=== PATIENT | male | born 1975 | race African-American/Black ===

== ENCOUNTER 2025-03-26 03:15 | Observation (INO) | payer OTHER ==
[~2025-03-26] VITALS: Ht 162.6 cm; Wt 66.6 kg
[2025-03-26 03:41] LABS: BASOPHILS ABSOLUTE AUTO 0.02 K/mm3 (0.00-0.23); BASOPHILS PERCENT AUTO 0 % (0-2); EOSINOPHILS ABSOLUTE AUTO 0.18 K/mm3 (0.00-0.68); EOSINOPHILS PERCENT AUTO 2 % (0-6); Hematocrit 40.2 % (37.0-53.0); Hemoglobin 14.6 g/dL (13.5-17.5); IMMATURE GRAN ABSOLUTE AUTO 0.02 K/mm3 (0.00-0.10); IMMATURE GRAN PERCENT AUTO 0 % (0-1); LYMPHOCYTES ABSOLUTE AUTO 2.99 K/mm3 (0.84-5.20); LYMPHOCYTES PERCENT AUTO 36 % (21-46); MONOCYTES ABSOLUTE AUTO 0.59 K/mm3 (0.16-1.47); MONOCYTES PERCENT AUTO 7 % (4-13); Mean Corpuscular HGB Conc 36.3 g/dL (31.5-36.5); Mean Corpuscular Volume 88 fL (80-100); NEUTROPHILS ABSOLUTE AUTO 4.55 K/mm3 (1.96-9.15); NEUTROPHILS PERCENT AUTO 55 % (41-73); NRBC ABSOLUTE 0.00 K/mm3 (0.00-0.02); NRBC Auto 0.0 /100 WBC (0.0-0.2); Platelet Count 208 K/mm3 (150-400); RDW Coefficient Variation 12.6 % (11.7-14.2); RDW Standard Deviation 39.9 fL (35.1-46.3)
[2025-03-26 04:18] LABS: Magnesium, Blood 2.2 mg/dL (1.6-2.4)
[2025-03-26 04:24] LABS: Alanine Aminotransfer (ALT/SGP 83.0 U/L (12-78); Albumin, Blood 3.9 g/dL (3.4-5.0); Albumin/Globulin Ratio 0.9 (0.8-1.8); Anion Gap 7.0 mmol/L (3-11); Aspartate Aminotrans (AST/SGOT 54.0 U/L (12-37); Bilirubin, Total 0.7 mg/dL (0.1-1.0); Blood Urea Nitrogen 8.0 mg/dL (8-24); CO2, Blood 27.0 mmol/L (21-32); Calcium, Blood 8.4 mg/dL (8.5-10.1); Chloride, Blood 107.0 mmol/L (98-108); Creatinine, Blood 0.85 mg/dL (0.60-1.20); Globulin, Blood 4.3 g/dL (2.2-4.0); Glucose, Blood 132.0 mg/dL (70-99); Phosphorus, Blood 0.9 mg/dL (2.5-4.9); Potassium, Blood 2.7 mmol/L (3.5-5.5); Sodium, Blood 138.0 mmol/L (136-145); Total Protein, Blood 8.2 g/dL (6.4-8.2)
[2025-03-26] MEDS ORDERED: Potassium Chl 20MEQ/Water100ML 100 ML IV SCH (05:05)
[2025-03-26 05:12] LABS: Source, Urine Clean Catch
[2025-03-26 05:23] LABS: Bilirubin, Urine Neg (Neg); Color, Urine Yellow (P-Yellow); Glucose Qualitative, Urine Neg (Neg); Ketones, Urine Neg (Neg); Leukocyte Esterase, Urine Neg (Neg); Protein, Urine Neg (Neg); Specific Gravity, Urine 1.015 (1.003-1.022); Urobilinogen, Urine NORM (Normal)
[2025-03-26 05:35] LABS: White Blood Cells, Urine Not Seen /hpf (0-5)
[2025-03-26 05:36] LABS: Red Blood Cells, Urine Not Seen /hpf (0-2)
[2025-03-26] MEDS ORDERED: Potassium Phosphate Dibasic 30 MM in Dextrose 5% 500 ML IV ONE (06:00)
[2025-03-26] MEDS ORDERED: NS 1,000 ML IV SCH (06:40)
--- NOTE | 2025-03-26 09:38 | NUR ---
ARRIVAL NOTE: PATIENT ARRIVES TO UNIT AND PIVOT AND TRANSFFERED TO OUR BED. PATIENT DENIED ANY CHEST PAIN/PRESSURE. VITAL SIGNS STABLE & PATIENT DENIED ANY PAIN OVERALL.
[2025-03-26] MEDS ORDERED: HYDCHL25 PO (09:41)
[2025-03-26] MEDS ORDERED: Aspir 8181 MG PO (09:42)
[2025-03-26] MEDS ORDERED: POTASSIUM GLUC500 M1 PO (09:42)
[2025-03-26 10:56] LABS: Alanine Aminotransfer (ALT/SGP 86.0 U/L (12-78); Albumin, Blood 4.0 g/dL (3.4-5.0); Albumin/Globulin Ratio 1.1 (0.8-1.8); Anion Gap 6.0 mmol/L (3-11); Aspartate Aminotrans (AST/SGOT 51.0 U/L (12-37); Bilirubin, Total 0.8 mg/dL (0.1-1.0); Blood Urea Nitrogen 7.0 mg/dL (8-24); CO2, Blood 30.0 mmol/L (21-32); Calcium, Blood 8.3 mg/dL (8.5-10.1); Chloride, Blood 107.0 mmol/L (98-108); Creatinine, Blood 0.79 mg/dL (0.60-1.20); Globulin, Blood 3.8 g/dL (2.2-4.0); Glucose, Blood 113.0 mg/dL (70-99); Potassium, Blood 3.0 mmol/L (3.5-5.5); Sodium, Blood 140.0 mmol/L (136-145); Total Protein, Blood 7.8 g/dL (6.4-8.2)
--- NOTE | 2025-03-26 11:34 | NUR ---
MD CALLED: THIS RN CALLED MD REGARDING PT ARRIVING TO UNIT. MD ORDERED MORE POTASSIUM ORALLY AND WILL BE ROUNDING SHORTLY.
[2025-03-26 12:09] VITALS: BP 119/83
--- NOTE | 2025-03-26 13:40 | NUR ---
MD ROUNDED: MD ROUNDED ON PATIENT AND TALKED WITH PATIENT AND FAMILY AT BEDSIDE. MD GAVE VERBAL ORDERS TO PLACE LAB DRAW, PENDING RESULTS PATIENT MAY DISCHARGE TODAY.
--- NOTE | 2025-03-26 15:39 | NUR ---
md called: this rn called md regarding patients lab coming back, md to place orders.
--- NOTE | 2025-03-26 15:56 | NUR ---
MD CALLED: MD CALLED AND GAVE VERBAL ORDER TO ADD FREE T3 & T4 PRIOR TO DISCHARGING. ALSO ORDERED PO POTASSIUM TO BE GIVEN ALSO.
[2025-03-26 16:14] VITALS: BP 122/83
--- NOTE | 2025-03-26 16:26 | NUR ---
Upon receiving a referral for spiritual care, I visited the patient. He has his 3 dtrs bedside and they aliven the room with their banter and david. The oldest dtr asks many question about ana maria, Father Eren and my role as a Director Of Instrumental Music. She asks if I could say a prayer for her father which I gladly supply. The family and the patient voice their appreciation. I will continue to remain available.
--- NOTE | 2025-03-26 16:42 | NUR ---
CALLED: THIS RN CALLED MD REGARDING T3 & T4 LAB VALUES AND MD STATED SHE WILL BE COMING BY TO TALK WITH PATIENT AND WILL BE ADDING DISCHARGE ORDERS.
[2025-03-26] MEDS ORDERED: AMLO5 PO (17:00)
[2025-03-26] MEDS ORDERED: VITAMIN D5000 UNIT PO (17:03)
--- NOTE | 2025-03-26 17:26 | NUR ---
DISCHARGE NOTE: PATIENT WAS DISCHARGE HOME AND MEDICATIONS SENT TO [facility] ON [address]. PATIENT AWARE HE WILL STOP TAKING HIS DIURETIC AND DIFFERENT MEDS WERE ORDERED ALONG WITH VITAMIN D. PATIENT WAS WALKED OUT AND HE HAD HIS CAR. AWARE TO CALL HIS PRIMARY DOC AND SCHEDULED A FOLLOW UP APPOINTMENT KRISTYN.
[2025-03-28 10:06] LABS: HEPATITIS A ANTIBODY, IGM Negative (Negative); HEPATITIS C AB CIA INTERP Negative (Negative); HEPATITIS C ANTIBODY CIA INDEX 0.04 IV
== END 2025-03-26 17:18 | disposition home or self-care (01) ==
LOC: ER 03:15 → PCU 03:16 → ERHOLD 03:16 → PCU 09:27
PROVIDERS: Emergency Medicine; Internal Medicine; ADMIT Student in an Organized Health Care Education/Training Program
DX: E83.39 Other disorders of phosphorus metabolism (principal); E87.6 Hypokalemia; T50.2X5A Adverse effect of carbonic-anhydrase inhibitors, benzothiadiazides and other diuretics, initial encounter; R74.01 Elevation of levels of liver transaminase levels; R05.3 Chronic cough; I10 Essential (primary) hypertension; Z66 Do not resuscitate; Z79.899 Other long term (current) drug therapy
CPT/HCPCS: 36415; 71046; 80053; 80074; 81001; 82306; 82550; 83735; 83970; 84100; 84132; 84439; 84443; 84481; 84484; 85025; 93005; 93010; 96365; 96366; 96368; 99285-25; A9270; G0378; J3480; J7030; J7060; J7120